=== PATIENT | female | born 1940 | race Caucasian/White ===

== ENCOUNTER → 2023-10-06 14:19 | Outpatient (REF) | payer MEDICARE, OTHER, SELFPAY ==
[2023-10-06 15:26] LABS: Hematocrit 41.6 % (37.0-47.0); Hemoglobin 13.4 g/dL (12.0-16.0); Mean Corp Hgb Conc. 32.2 g/dL (33.0-37.0); Mean Corpuscular Hgb 30.6 pg (27.0-31.0); Mean Platelet Volume 12.7 fL (7.4-10.4); Platelet Count 185 10^3/uL (130-400); Red Blood Cell Count 4.38 10^6/uL (4.20-5.40); Red Cell Dist. Width 13.6 % (11.5-14.5); White Blood Cell Count 6.6 10^3/uL (4.8-10.8)
[2023-10-06 15:28] LABS: ALT (SGPT) 158 U/L (0-35); AST (SGOT) 66 U/L (14-36); Albumin 2.9 g/dl (3.5-5.0); Alkaline Phosphatase 181 U/L (38-126); Blood Urea Nitrogen 18 mg/dl (7-17); Carbon Dioxide 24 mmol/L (22-30); Chloride 111 mmol/L (98-107); Direct Bilirubin 0.4 mg/dl (0.0-0.4); Glucose 89 mg/dl (70-99); Potassium 4.3 mmol/L (3.5-5.1); Sodium 141 mmol/L (135-145); Total Bilirubin 0.5 mg/dl (0.2-1.3); Total Protein 5.5 g/dl (6.3-8.2); eGFR > 60.00
[2023-10-06 15:49] LABS: Vitamin D, 25-OH*** 46.5 ng/mL (30-80)
[2023-10-06 16:03] LABS: TSH 2.27 uIU/ml (0.47-4.68)
[2023-10-06 16:22] LABS: Vitamin B12 276 pg/ml (239-931)
== END ==
LOC: OLABN 14:19
PROVIDERS: ATTENDING PHYSICIAN Family Medicine
DX: F03.918 Unspecified dementia, unspecified severity, with other behavioral disturbance (principal); E55.9 Vitamin D deficiency, unspecified; I10 Essential (primary) hypertension; K21.9 Gastro-esophageal reflux disease without esophagitis; E53.8 Deficiency of other specified B group vitamins
CPT/HCPCS: 36415; 80048; 80076; 82306; 82607; 84443; 85027

== ENCOUNTER → 2024-10-04 13:44 | Outpatient (REF) | payer MEDICARE, OTHER, SELFPAY ==
[2024-10-04 15:22] LABS: Hematocrit 41.3 % (37.0-47.0); Hemoglobin 13.5 g/dL (12.0-16.0); Mean Corp Hgb Conc. 32.7 g/dL (33.0-37.0); Mean Corpuscular Hgb 31.5 pg (27.0-31.0); Mean Corpuscular Volume 96.5 fL (81.0-99.0); Platelet Count 205 10^3/uL (130-400); Red Blood Cell Count 4.28 10^6/uL (4.20-5.40); Red Cell Dist. Width 12.8 % (11.5-14.5); White Blood Cell Count 6.2 10^3/uL (4.8-10.8)
[2024-10-04 15:54] LABS: ALT (SGPT) 12 U/L (0-35); AST (SGOT) 26 U/L (14-36); Albumin 3.3 g/dl (3.5-5.0); Alkaline Phosphatase 100 U/L (38-126); Blood Urea Nitrogen 15 mg/dl (7-17); Carbon Dioxide 20 mmol/L (22-30); Chloride 116 mmol/L (98-107); Direct Bilirubin 0.2 mg/dl (0.0-0.4); Glucose 83 mg/dl (70-99); Potassium 4.8 mmol/L (3.5-5.1); Sodium 142 mmol/L (135-145); Total Bilirubin 0.7 mg/dl (0.2-1.3); Total Protein 5.9 g/dl (6.3-8.2); eGFR > 60.00
[2024-10-04 15:56] LABS: Vitamin D, 25-OH*** 42.9 ng/mL (30-80)
[2024-10-06 14:56] LABS: Vitamin B12 280 pg/ml (239-931)
== END ==
LOC: OLABN 13:44
PROVIDERS: ATTENDING PHYSICIAN Family Medicine
DX: I10 Essential (primary) hypertension (principal); E55.9 Vitamin D deficiency, unspecified; K21.9 Gastro-esophageal reflux disease without esophagitis
CPT/HCPCS: 36415; 80048; 80053; 80076; 82248; 82306; 82607; 84443; 85027